=== PATIENT | male | born 1960 | race African-American/Black ===

== ENCOUNTER 2016-09-01 19:41 | Emergency (ER) | payer MEDICAID ==
[~2016-09-01] VITALS: Ht 177.8 cm; Wt 125.0 kg
[~2016-09-01 19:41] MED LIST: DIVA500T52 PO; DOCU-174 PO; HYDR25TA PO; LISI-662 PO; QUET300XR PO; RISP3 PO
[2016-09-01] MEDS ORDERED: TERBINAFINE HCL 1% 30 GM CREAM TP ONE (22:45)
[2016-09-01] MEDS ORDERED: LORazepam 2 MG TABLET PO ONE (22:45)
[2016-09-01 23:00] VITALS: BP 135/80
[2016-09-21] MEDS ORDERED: DIVA500T52 PO (14:11)
[2016-09-21] MEDS ORDERED: QUET300T2 PO (14:12)
[2016-09-21] MEDS ORDERED: ASPI-1093 PO (14:14)
[2016-09-21] MEDS ORDERED: METO50 PO (14:14)
[2016-09-21] MEDS ORDERED: AMLO-511 PO (14:14)
[2016-09-21] MEDS ORDERED: OMEP20 PO (14:15)
[2016-09-29] MEDS ORDERED: PALI234D IM (08:51)
[2016-09-29] MEDS ORDERED: FLUO-191 PO (08:52)
[2016-09-29] MEDS ORDERED: PALI3 PO (08:53)
== END 2016-09-01 23:10 | disposition home or self-care (01) ==
LOC: EMS 19:42
DX: F32.9 Major depressive disorder, single episode, unspecified (principal); Z91.14 Patient's other noncompliance with medication regimen; B35.3 Tinea pedis; B35.1 Tinea unguium; F41.9 Anxiety disorder, unspecified; E78.00 Pure hypercholesterolemia, unspecified; F20.9 Schizophrenia, unspecified; F17.210 Nicotine dependence, cigarettes, uncomplicated; I10 Essential (primary) hypertension; Z88.8 Allergy status to other drugs, medicaments and biological substances
CPT/HCPCS: 99284; 99406

== ENCOUNTER 2016-09-30 09:06 | Emergency (ER) | payer MEDICAID ==
[~2016-09-30] VITALS: Ht 177.8 cm; Wt 122.7 kg
[~2016-09-30 09:06] MED LIST changes: +AMLO-511 PO; +ASPI-1093 PO; -DIVA500T52 PO; -DOCU-174 PO; +FLUO-191 PO; -HYDR25TA PO; +METO50 PO; +OMEP20 PO; +PALI234D IM; +PALI3 PO; -QUET300XR PO; -RISP3 PO
[2016-09-30] MEDS ORDERED: HYDR25TA PO (09:27)
[2016-09-30 10:18] LABS: APPEARANCE,URINE CLOUDY (CLEAR); GLUCOSE, URINE (UA) NEGATIVE (NEGATIVE); KETONES,URINE TRACE mg/dL (NEGATIVE); LEUKOCYTE ESTERASE ,URINE SMALL (NEGATIVE); OCCULT BLOOD,URINE NEGATIVE (NEGATIVE); PROTEIN,URINE SEE CONFIRM (NEGATIVE)
[2016-09-30 10:22] LABS: ADD UA MICROSCOPIC YES
[2016-09-30 10:25] LABS: SULFOSALICYLIC ACID,URINE 2+ (Negative)
[2016-09-30 10:35] LABS: RBC,URINE 0-2 /HPF (0-2)
[2016-09-30 10:36] LABS: COARSE GRANULAR CASTS,URINE 0-2 /LPF (None Seen); FINE GRANULAR CASTS,URINE 0-2 /LPF (None Seen)
[2016-09-30 10:56] LABS: BASOPHILS % (AUTO) 0.5 % (0.0-2.0); EOSINOPHILS % (AUTO) 0.3 % (1.0-6.0); HEMATOCRIT 38.6 % (41-53); HEMOGLOBIN 13.4 g/dL (13.5-17.5); LYMPHOCYTES # (AUTO) 0.9 K/uL (1.0-4.8); LYMPHOCYTES % (AUTO) 26.3 % (22.0-44.0); MEAN CORPUSCULAR HEMOGLOBIN 32.2 pg (26.0-34.0); MEAN CORPUSCULAR HGB CONC 34.8 G/dL (31.0-37.0); MEAN CORPUSCULAR VOLUME 93 fL (80-100); MONOCYTES # (AUTO) 0.4 K/uL (0.1-1.0); MONOCYTES % (AUTO) 11.6 % (2.0-9.0); NEUTROPHILS # (AUTO) 2.1 K/uL (1.8-7.7); NEUTROPHILS % (AUTO) 61.3 % (40.0-70.0); PLATELET COUNT (AUTO) 231 K/uL (150-450); RED BLOOD CELL COUNT(AUTO) 4.17 MIL/uL (4.50-5.90); RED CELL DISTRIBUTION WIDTH 14.3 % (11.5-14.5); WHITE BLOOD COUNT (AUTO) 3.4 K/uL (4.5-11.0)
[2016-09-30 11:07] LABS: ANION GAP 7 mmol/L (8-16); CALCIUM, TOTAL 9.1 mg/dL (8.8-10.5); CARBON DIOXIDE 30 mmol/L (22-29); CHLORIDE 97 mmol/L (98-107); CREATININE 1.14 mg/dL (0.60-1.30); GLOMERULAR FILTR. RATE CALC > 60 mL/min (>60); POTASSIUM 3.5 mmol/L (3.5-5.1); SODIUM SERUM 134 mmol/L (136-145); UREA NITROGEN, BLOOD 11 mg/dL (7-18)
[2016-09-30 11:08] LABS: INR 1.1 (0.9-1.1); PROTHROMBIN TIME 11.5 SEC (9.4-11.6)
[2016-09-30 11:16] LABS: B-TYPE NATRIURETIC PEPTIDE 37 pg/mL (0-100)
[2016-09-30 11:37] LABS: ALANINE AMINOTRANSFERASE 67 U/L (12-78); ALBUMIN 4.2 g/dL (3.4-5.0); ASPARTATE AMINOTRANSFERASE 26 U/L (15-37); BILIRUBIN,TOTAL 0.7 mg/dL (0.1-1.0); CREATINE KINASE MB 4.4 ng/mL (0-5); CREATINE KINASE, TOTAL 288 U/L (39-308); TOTAL PROTEIN, SERUM 7.9 g/dL (6.4-8.2)
[2016-09-30 11:40] VITALS: BP 165/97
[2016-09-30] MEDS ORDERED: SODIUM CHLORIDE 0.9% 1,000 ML IV ONE (12:00)
[2016-09-30] MEDS ORDERED: CefTRIAXone 1 GM/DEXTROSE 50 ML IV ONE (12:00)
== END 2016-09-30 12:08 | disposition home or self-care (01) ==
LOC: EMS 09:08
DX: N39.0 Urinary tract infection, site not specified (principal); I10 Essential (primary) hypertension; E78.00 Pure hypercholesterolemia, unspecified; J40 Bronchitis, not specified as acute or chronic; F17.210 Nicotine dependence, cigarettes, uncomplicated; Z88.8 Allergy status to other drugs, medicaments and biological substances
CPT/HCPCS: 36415; 71010; 80053; 81001; 82550; 82553; 83880; 84484; 85025; 85610; 85730; 87086; 93005; 96374; 99285; G0480; J0696; 96365

== ENCOUNTER 2017-06-06 00:39 | Inpatient (IN) | payer MEDICAID ==
[~2017-06-06] VITALS: Ht 177.8 cm; Wt 102.1 kg
[~2017-06-06 00:39] MED LIST changes: -AMLO-511 PO; -ASPI-1093 PO; +ASPI-1182 PO; +BACI3.5O22 TP; +DIPH25 PO; +DSS100 PO; -PALI3 PO; +PALI6 PO
[2017-06-06 02:35] LABS: BASOPHILS % (AUTO) 0.8 % (0.0-2.0); EOSINOPHILS % (AUTO) 0.1 % (1.0-6.0); HEMATOCRIT 34.5 % (41-53); HEMOGLOBIN 11.7 g/dL (13.5-17.5); LYMPHOCYTES # (AUTO) 1.2 K/uL (1.0-4.8); LYMPHOCYTES % (AUTO) 26.8 % (22.0-44.0); MEAN CORPUSCULAR HEMOGLOBIN 31.3 pg (26.0-34.0); MEAN CORPUSCULAR HGB CONC 33.8 G/dL (31.0-37.0); MEAN CORPUSCULAR VOLUME 93 fL (80-100); MONOCYTES # (AUTO) 0.3 K/uL (0.1-1.0); MONOCYTES % (AUTO) 6.8 % (2.0-9.0); NEUTROPHILS # (AUTO) 2.9 K/uL (1.8-7.7); NEUTROPHILS % (AUTO) 65.5 % (40.0-70.0); PLATELET COUNT (AUTO) 354 K/uL (150-450); RED BLOOD CELL COUNT(AUTO) 3.72 MIL/uL (4.50-5.90); RED CELL DISTRIBUTION WIDTH 14.3 % (11.5-14.5)
[2017-06-06 02:39] LABS: APPEARANCE,URINE CLEAR (CLEAR); BILIRUBIN,URINE NEGATIVE (NEGATIVE); GLUCOSE, URINE (UA) NEGATIVE (NEGATIVE); KETONES,URINE NEGATIVE (NEGATIVE); LEUKOCYTE ESTERASE ,URINE NEGATIVE (NEGATIVE); NITRATE,URINE NEGATIVE (NEGATIVE); OCCULT BLOOD,URINE NEGATIVE (NEGATIVE); PROTEIN,URINE NEGATIVE (NEGATIVE); UROBILINOGEN,URINE 0.2 mg/dL (<=1.0)
[2017-06-06 02:43] LABS: AMPHET/METH SCREEN,URINE NEGATIVE (NEGATIVE); BARBITURATE SCREEN, URINE NEGATIVE (NEGATIVE); BENZODIAZEPINES SCREEN,URINE NEGATIVE (NEGATIVE); CANNABINOID SCREEN,URINE NEGATIVE (NEGATIVE); COCAINE SCREEN,URINE NEGATIVE (NEGATIVE); METHADONE SCREEN, URINE NEGATIVE (NEGATIVE); OPIATE SCREEN,URINE NEGATIVE (NEGATIVE)
[2017-06-06 03:05] LABS: PHENCYCLIDINE SCREEN,URINE NEGATIVE (NEGATIVE)
[2017-06-06 03:11] LABS: ANION GAP 5 mmol/L (8-16); CALCIUM, TOTAL 9.3 mg/dL (8.8-10.5); CARBON DIOXIDE 31 mmol/L (22-29); CHLORIDE 100 mmol/L (98-107); CREATININE 0.81 mg/dL (0.60-1.30); GLOMERULAR FILTR. RATE CALC > 60 mL/min (>60); GLUCOSE,RANDOM 86 mg/dL (70-110); POTASSIUM 3.9 mmol/L (3.5-5.1); SODIUM SERUM 136 mmol/L (136-145); UREA NITROGEN, BLOOD 10 mg/dL (7-18)
[2017-06-06] MEDS ORDERED: LORazepam 2 MG TABLET PO ONE (03:15)
[2017-06-06] MEDS ORDERED: OLANZapine 5 MG TABLET PO ONE (03:15)
[2017-06-06] MEDS ORDERED: DiphenhydrAMINE HCL 25 MG CAPSULE PO ONE (03:15)
[2017-06-06 03:16] LABS: ALANINE AMINOTRANSFERASE 41 U/L (12-78); ALBUMIN 3.4 g/dL (3.4-5.0); ALKALINE PHOSPHATASE 77 U/L (46-116); ASPARTATE AMINOTRANSFERASE 31 U/L (15-37); BILIRUBIN,TOTAL 0.4 mg/dL (0.1-1.0); TOTAL PROTEIN, SERUM 7.4 g/dL (6.4-8.2)
[2017-06-06 08:40] VITALS: BP 154/119
[2017-06-06 08:45] VITALS: BP 156/119
[2017-06-06] MEDS ORDERED: BACITRACIN 28.4 GM OINTMENT TP PRN (09:45)
[2017-06-06] MEDS ORDERED: PETROLATUM,WHITE 71 GM JELLY TP PRN (09:45)
[2017-06-06] MEDS ORDERED: LOPERAMIDE HCL 2 MG CAPSULE PO PRN (09:45)
[2017-06-06] MEDS ORDERED: MAGNESIUM HYDROXIDE SUSPENSION 30 ML UDCUP PO PRN (09:45)
[2017-06-06] MEDS ORDERED: DiphenhydrAMINE HCL 25 MG CAPSULE PO PRN (09:45)
[2017-06-06] MEDS ORDERED: ALBUTEROL SULFATE HFA 90 MCG/PUFF 8 GM INHALER IH PRN (09:45)
[2017-06-06] MEDS ORDERED: IBUPROFEN 600 MG TABLET PO PRN (09:45)
[2017-06-06] MEDS ORDERED: ACETAMINOPHEN 325 MG TABLET PO PRN (09:45)
[2017-06-06] MEDS ORDERED: MAG HYDROX/AL HYDROX/SIMETH ES 30 ML SUSPENSION UDCUP PO PRN (09:45)
[2017-06-06] MEDS ORDERED: ONDANSETRON HCL 4 MG TABLET PO PRN (09:45)
[2017-06-06] MEDS ORDERED: BENZOCAINE/MENTHOL LOZENGE MM PRN (09:45)
[2017-06-06] MEDS: LISINOPRIL 20 MG TABLET PO SCH (09:58)
[2017-06-06] MEDS: BACITRACIN 28.4 GM OINTMENT TP SCH ×2 (09:59→16:42)
[2017-06-06] MEDS: LORazepam 2 MG TABLET PO PRN ×2 (09:59→16:42)
[2017-06-06 16:00] VITALS: BP 132/77
[2017-06-06] MEDS: METOPROLOL TARTRATE 50 MG TABLET PO SCH (16:42)
[2017-06-06] MEDS: PALIPERIDONE 6 MG ER TABLET PO SCH (21:20)
[2017-06-07 04:56] VITALS: BP 140/92
[2017-06-07 08:00] VITALS: BP 127/68
[2017-06-07] MEDS: DiphenhydrAMINE HCL 25 MG CAPSULE PO SCH ×2 (08:04→16:12)
[2017-06-07] MEDS: LORazepam 2 MG TABLET PO PRN ×3 (08:04→20:39)
[2017-06-07] MEDS: LISINOPRIL 20 MG TABLET PO SCH (08:04)
[2017-06-07] MEDS: ASPIRIN 81 MG EC TABLET PO SCH (08:04)
[2017-06-07] MEDS: FLUoxetine HCL 20 MG CAPSULE PO SCH (08:04)
[2017-06-07] MEDS: METOPROLOL TARTRATE 50 MG TABLET PO SCH ×2 (08:40→16:12)
[2017-06-07] MEDS: BACITRACIN 28.4 GM OINTMENT TP SCH ×2 (08:40→16:13)
[2017-06-07] MEDS: PALIPERIDONE 6 MG ER TABLET PO SCH ×2 (08:49→20:39)
[2017-06-07] MEDS ORDERED: LISINOPRIL 20 MG TABLET PO SCH (09:00)
[2017-06-07 16:00] VITALS: BP 145/89
[2017-06-07] MEDS: ZOLPIDEM TARTRATE 10 MG TABLET PO PRN (20:39)
[2017-06-08] MEDS: CloNIDine HCL 0.1 MG TABLET PO PRN (00:50)
[2017-06-08 00:53] VITALS: BP 187/97
[2017-06-08] MEDS: LORazepam 2 MG TABLET PO PRN ×2 (00:53→08:51)
[2017-06-08 02:02] VITALS: BP 143/87
[2017-06-08 08:08] VITALS: BP 145/83
[2017-06-08] MEDS: FLUoxetine HCL 20 MG CAPSULE PO SCH (08:49)
[2017-06-08] MEDS: LISINOPRIL 20 MG TABLET PO SCH (08:50)
[2017-06-08] MEDS: DiphenhydrAMINE HCL 25 MG CAPSULE PO SCH ×2 (08:50→16:25)
[2017-06-08] MEDS: ASPIRIN 81 MG EC TABLET PO SCH (08:50)
[2017-06-08] MEDS: PALIPERIDONE 6 MG ER TABLET PO SCH ×2 (08:51→20:06)
[2017-06-08] MEDS: METOPROLOL TARTRATE 50 MG TABLET PO SCH ×2 (08:51→16:25)
[2017-06-08] MEDS: BACITRACIN 28.4 GM OINTMENT TP SCH ×2 (09:50→16:26)
[2017-06-08 16:37] VITALS: BP 153/87
[2017-06-08 20:00] VITALS: BP 146/84
[2017-06-08 21:22] VITALS: BP 140/66
[2017-06-08] MEDS: ZOLPIDEM TARTRATE 10 MG TABLET PO PRN (22:09)
[2017-06-09 05:05] VITALS: BP 144/91
[2017-06-09 08:08] VITALS: BP 139/80
[2017-06-09] MEDS: ASPIRIN 81 MG EC TABLET PO SCH (08:40)
[2017-06-09] MEDS: PALIPERIDONE 6 MG ER TABLET PO SCH ×2 (08:40→20:42)
[2017-06-09] MEDS: LORazepam 2 MG TABLET PO PRN ×2 (08:40→16:30)
[2017-06-09] MEDS: METOPROLOL TARTRATE 50 MG TABLET PO SCH ×2 (08:40→16:29)
[2017-06-09] MEDS: DiphenhydrAMINE HCL 25 MG CAPSULE PO SCH ×2 (08:40→16:29)
[2017-06-09] MEDS: LISINOPRIL 20 MG TABLET PO SCH (08:40)
[2017-06-09] MEDS: FLUoxetine HCL 20 MG CAPSULE PO SCH (08:41)
[2017-06-09] MEDS: BACITRACIN 28.4 GM OINTMENT TP SCH ×2 (10:13→16:30)
[2017-06-09 17:03] VITALS: BP 138/61
[2017-06-09] MEDS: ZOLPIDEM TARTRATE 10 MG TABLET PO PRN (20:42)
[2017-06-10] MEDS: LORazepam 2 MG TABLET PO PRN ×2 (03:50→16:42)
[2017-06-10] MEDS: CloNIDine HCL 0.1 MG TABLET PO PRN (03:51)
[2017-06-10 03:52] VITALS: BP 150/112
[2017-06-10 05:00] VITALS: BP 140/92
[2017-06-10] MEDS: PALIPERIDONE 6 MG ER TABLET PO SCH ×2 (08:30→20:32)
[2017-06-10] MEDS: FLUoxetine HCL 20 MG CAPSULE PO SCH (08:30)
[2017-06-10 08:31] VITALS: BP 163/85
[2017-06-10] MEDS: BACITRACIN 28.4 GM OINTMENT TP SCH ×2 (08:31→16:42)
[2017-06-10] MEDS: METOPROLOL TARTRATE 50 MG TABLET PO SCH ×2 (08:31→16:42)
[2017-06-10] MEDS: ASPIRIN 81 MG EC TABLET PO SCH (08:31)
[2017-06-10] MEDS: DiphenhydrAMINE HCL 25 MG CAPSULE PO SCH ×2 (08:31→16:42)
[2017-06-10] MEDS: LISINOPRIL 20 MG TABLET PO SCH ×2 (08:31→09:40)
[2017-06-10 16:00] VITALS: BP 130/72
[2017-06-11 03:56] VITALS: BP 161/111
[2017-06-11] MEDS: CloNIDine HCL 0.1 MG TABLET PO PRN (04:01)
[2017-06-11] MEDS: LORazepam 2 MG TABLET PO PRN ×2 (04:01→16:06)
[2017-06-11 05:00] VITALS: BP 153/98
[2017-06-11] MEDS: METOPROLOL TARTRATE 50 MG TABLET PO SCH ×2 (08:10→16:06)
[2017-06-11] MEDS: ASPIRIN 81 MG EC TABLET PO SCH (08:10)
[2017-06-11] MEDS: DiphenhydrAMINE HCL 25 MG CAPSULE PO SCH ×2 (08:10→16:06)
[2017-06-11] MEDS: LISINOPRIL 20 MG TABLET PO SCH (08:10)
[2017-06-11] MEDS: BACITRACIN 28.4 GM OINTMENT TP SCH ×2 (08:10→16:06)
[2017-06-11] MEDS: PALIPERIDONE 6 MG ER TABLET PO SCH ×2 (08:10→20:42)
[2017-06-11] MEDS: FLUoxetine HCL 20 MG CAPSULE PO SCH (08:10)
[2017-06-11 08:59] VITALS: BP 133/80
[2017-06-11 16:00] VITALS: BP 138/66
[2017-06-11] MEDS: ZOLPIDEM TARTRATE 10 MG TABLET PO PRN (20:42)
[2017-06-12 03:00] VITALS: BP 155/93
[2017-06-12] MEDS: LORazepam 2 MG TABLET PO PRN ×2 (03:02→08:16)
[2017-06-12 08:09] VITALS: BP 138/81
[2017-06-12] MEDS: PALIPERIDONE 6 MG ER TABLET PO SCH (08:15)
[2017-06-12] MEDS: FLUoxetine HCL 20 MG CAPSULE PO SCH (08:15)
[2017-06-12] MEDS: DiphenhydrAMINE HCL 25 MG CAPSULE PO SCH ×2 (08:16→16:49)
[2017-06-12] MEDS: LISINOPRIL 20 MG TABLET PO SCH (08:16)
[2017-06-12] MEDS: ASPIRIN 81 MG EC TABLET PO SCH (08:16)
[2017-06-12] MEDS: METOPROLOL TARTRATE 50 MG TABLET PO SCH ×2 (08:17→16:49)
[2017-06-12] MEDS: BACITRACIN 28.4 GM OINTMENT TP SCH ×2 (08:17→17:10)
[2017-06-12 16:00] VITALS: BP 151/76
[2017-06-12] MEDS ORDERED: FLUO-191 PO (16:29)
[2017-06-12] MEDS ORDERED: PALI6 PO (16:30)
[2017-06-12] MEDS ORDERED: LISI-662 PO (16:33)
[2017-06-28] MEDS ORDERED: PALIPERIDONE PALMITATE 234 MG/1.5 ML SYRINGE IM SCH (09:00)
== END 2017-06-12 18:35 | disposition home or self-care (01) | DRG 750 ==
LOC: EMS 00:40 → B3A 02:52
PROVIDERS: ADMIT Psychiatry & Neurology Psychiatry; ATTEND Psychiatry & Neurology Psychiatry
PROC: GZHZZZZ Group Psychotherapy (ICD-10-PCS; principal; 2017-06-06)
DX: F25.0 Schizoaffective disorder, bipolar type (principal); R45.851 Suicidal ideations; Z59.0 Homelessness; E66.9 Obesity, unspecified; I10 Essential (primary) hypertension; F17.200 Nicotine dependence, unspecified, uncomplicated; F12.90 Cannabis use, unspecified, uncomplicated; Z88.8 Allergy status to other drugs, medicaments and biological substances; Z68.32 Body mass index [BMI] 32.0-32.9, adult; E78.00 Pure hypercholesterolemia, unspecified; G47.00 Insomnia, unspecified; I25.10 Atherosclerotic heart disease of native coronary artery without angina pectoris; J44.9 Chronic obstructive pulmonary disease, unspecified; S00.01XA Abrasion of scalp, initial encounter; X58.XXXA Exposure to other specified factors, initial encounter; Y93.89 Activity, other specified; Y92.89 Other specified places as the place of occurrence of the external cause; Y99.8 Other external cause status; Z79.82 Long term (current) use of aspirin; Z82.49 Family history of ischemic heart disease and other diseases of the circulatory system
CPT/HCPCS: 93970; 99285; G0480

== ENCOUNTER 2017-07-02 13:19 | Emergency (ER) | payer OTHER ==
[~2017-07-02] VITALS: Ht 177.8 cm; Wt 102.0 kg
[~2017-07-02 13:19] MED LIST changes: -BACI3.5O22 TP; -DSS100 PO; -OMEP20 PO
[2017-07-02 14:35] LABS: ANION GAP 7 mmol/L (8-16); CARBON DIOXIDE 27 mmol/L (22-29); CHLORIDE 102 mmol/L (98-107); CREATININE 0.81 mg/dL (0.60-1.30); GLOMERULAR FILTR. RATE CALC > 60 mL/min (>60); GLUCOSE,RANDOM 81 mg/dL (70-110); POTASSIUM 4.4 mmol/L (3.5-5.1); SODIUM SERUM 136 mmol/L (136-145); UREA NITROGEN, BLOOD 12 mg/dL (7-18)
[2017-07-02 14:41] LABS: ALANINE AMINOTRANSFERASE 42 U/L (12-78); ALBUMIN 3.6 g/dL (3.4-5.0); ALKALINE PHOSPHATASE 65 U/L (46-116); ASPARTATE AMINOTRANSFERASE 24 U/L (15-37); BILIRUBIN,TOTAL 0.4 mg/dL (0.1-1.0); TOTAL PROTEIN, SERUM 6.8 g/dL (6.4-8.2)
[2017-07-02 15:05] LABS: EOSINOPHILS % (AUTO) 0.1 % (1.0-6.0); HEMOGLOBIN 12.1 g/dL (13.5-17.5); LYMPHOCYTES # (AUTO) 0.9 K/uL (1.0-4.8); LYMPHOCYTES % (AUTO) 25.8 % (22.0-44.0); MEAN CORPUSCULAR HEMOGLOBIN 32.1 pg (26.0-34.0); MEAN CORPUSCULAR HGB CONC 34.6 G/dL (31.0-37.0); MEAN CORPUSCULAR VOLUME 93 fL (80-100); MONOCYTES # (AUTO) 0.3 K/uL (0.1-1.0); MONOCYTES % (AUTO) 9.9 % (2.0-9.0); NEUTROPHILS # (AUTO) 2.2 K/uL (1.8-7.7); NEUTROPHILS % (AUTO) 63.2 % (40.0-70.0); PLATELET COUNT (AUTO) 212 K/uL (150-450); RED BLOOD CELL COUNT(AUTO) 3.78 MIL/uL (4.50-5.90); RED CELL DISTRIBUTION WIDTH 15.1 % (11.5-14.5)
[2017-07-02 15:12] LABS: AMPHET/METH SCREEN,URINE NEGATIVE (NEGATIVE); BARBITURATE SCREEN, URINE NEGATIVE (NEGATIVE); BENZODIAZEPINES SCREEN,URINE NEGATIVE (NEGATIVE); CANNABINOID SCREEN,URINE NEGATIVE (NEGATIVE); COCAINE SCREEN,URINE NEGATIVE (NEGATIVE); METHADONE SCREEN, URINE NEGATIVE (NEGATIVE); OPIATE SCREEN,URINE NEGATIVE (NEGATIVE)
[2017-07-02 15:13] LABS: PHENCYCLIDINE SCREEN,URINE NEGATIVE (NEGATIVE)
[2017-07-02 17:15] VITALS: BP 142/80
== END 2017-07-02 17:24 | disposition home or self-care (01) ==
LOC: EMS 13:20
DX: S01.00XD Unspecified open wound of scalp, subsequent encounter (principal); F20.9 Schizophrenia, unspecified; R42 Dizziness and giddiness; E78.00 Pure hypercholesterolemia, unspecified; I10 Essential (primary) hypertension; F12.90 Cannabis use, unspecified, uncomplicated; Z59.0 Homelessness; Z88.8 Allergy status to other drugs, medicaments and biological substances; X58.XXXD Exposure to other specified factors, subsequent encounter
CPT/HCPCS: 36415; 80053; 80307; 85025; 99284; G0480

== ENCOUNTER 2017-07-18 19:46 | Inpatient (IN) | payer MEDICAID, OTHER ==
[~2017-07-18] VITALS: Ht 177.8 cm; Wt 103.6 kg
[~2017-07-18 19:46] MED LIST changes: -ASPI-1182 PO; -DIPH25 PO; -LISI-662 PO; -PALI234D IM
[2017-07-18 23:37] LABS: AMPHET/METH SCREEN,URINE NEGATIVE (NEGATIVE); BARBITURATE SCREEN, URINE NEGATIVE (NEGATIVE); BENZODIAZEPINES SCREEN,URINE NEGATIVE (NEGATIVE); CANNABINOID SCREEN,URINE NEGATIVE (NEGATIVE); COCAINE SCREEN,URINE NEGATIVE (NEGATIVE); METHADONE SCREEN, URINE NEGATIVE (NEGATIVE); OPIATE SCREEN,URINE NEGATIVE (NEGATIVE)
[2017-07-18 23:38] LABS: PHENCYCLIDINE SCREEN,URINE NEGATIVE (NEGATIVE)
[2017-07-18 23:40] LABS: BASOPHILS % (AUTO) 0.6 % (0.0-2.0); EOSINOPHILS % (AUTO) 0.6 % (1.0-6.0); HEMATOCRIT 35.1 % (41-53); HEMOGLOBIN 12.1 g/dL (13.5-17.5); LYMPHOCYTES # (AUTO) 0.8 K/uL (1.0-4.8); LYMPHOCYTES % (AUTO) 23.8 % (22.0-44.0); MEAN CORPUSCULAR HEMOGLOBIN 32.3 pg (26.0-34.0); MEAN CORPUSCULAR HGB CONC 34.5 G/dL (31.0-37.0); MEAN CORPUSCULAR VOLUME 94 fL (80-100); MONOCYTES # (AUTO) 0.3 K/uL (0.1-1.0); MONOCYTES % (AUTO) 9.4 % (2.0-9.0); NEUTROPHILS # (AUTO) 2.3 K/uL (1.8-7.7); NEUTROPHILS % (AUTO) 65.6 % (40.0-70.0); PLATELET COUNT (AUTO) 186 K/uL (150-450); RED BLOOD CELL COUNT(AUTO) 3.75 MIL/uL (4.50-5.90); RED CELL DISTRIBUTION WIDTH 14.7 % (11.5-14.5)
[2017-07-18 23:53] LABS: ANION GAP 7 mmol/L (8-16); CALCIUM, TOTAL 8.5 mg/dL (8.8-10.5); CARBON DIOXIDE 29 mmol/L (22-29); CHLORIDE 103 mmol/L (98-107); GLOMERULAR FILTR. RATE CALC > 60 mL/min (>60); GLUCOSE,RANDOM 121 mg/dL (70-110); SODIUM SERUM 139 mmol/L (136-145); UREA NITROGEN, BLOOD 22 mg/dL (7-18)
[2017-07-18 23:59] LABS: ALANINE AMINOTRANSFERASE 37 U/L (12-78); ALBUMIN 3.1 g/dL (3.4-5.0); ALKALINE PHOSPHATASE 75 U/L (46-116); ASPARTATE AMINOTRANSFERASE 28 U/L (15-37); BILIRUBIN,TOTAL 0.2 mg/dL (0.1-1.0); TOTAL PROTEIN, SERUM 6.5 g/dL (6.4-8.2)
[2017-07-19] MEDS ORDERED: OLANZapine 5 MG RAPDIS TABLET PO PRN (00:30)
[2017-07-19 04:20] LABS: APPEARANCE,URINE CLEAR (CLEAR); BILIRUBIN,URINE PRELIM. POSITIVE (NEGATIVE); GLUCOSE, URINE (UA) NEGATIVE (NEGATIVE); KETONES,URINE NEGATIVE (NEGATIVE); LEUKOCYTE ESTERASE ,URINE NEGATIVE (NEGATIVE); NITRATE,URINE NEGATIVE (NEGATIVE); OCCULT BLOOD,URINE NEGATIVE (NEGATIVE); PH,URINE 5.5 (5.0-8.0); PROTEIN,URINE NEGATIVE (NEGATIVE)
[2017-07-19] MEDS ORDERED: CloNIDine HCL 0.1 MG TABLET PO ONE (14:45)
[2017-07-19] MEDS: LORazepam 2 MG TABLET PO PRN (19:51)
[2017-07-19 20:35] VITALS: BP 138/86
[2017-07-19] MEDS: PALIPERIDONE 6 MG ER TABLET PO SCH (21:24)
[2017-07-19] MEDS: DiphenhydrAMINE HCL 25 MG CAPSULE PO SCH (21:24)
[2017-07-19] MEDS: ZOLPIDEM TARTRATE 10 MG TABLET PO PRN (21:25)
[2017-07-20] MEDS ORDERED: PNEUMOCOCCAL VACCINE POLYVALENT 0.5 ML VIAL [PPSV23] IM ONE (03:30)
[2017-07-20] MEDS ORDERED: BENZOCAINE/MENTHOL LOZENGE [8 LOZENGES/PACKET] MM PRN (08:30)
[2017-07-20] MEDS ORDERED: MAGNESIUM HYDROXIDE SUSPENSION 30 ML UDCUP PO PRN (08:30)
[2017-07-20] MEDS ORDERED: BACITRACIN 28.4 GM OINTMENT TP PRN (08:30)
[2017-07-20] MEDS ORDERED: ACETAMINOPHEN 325 MG TABLET PO PRN (08:30)
[2017-07-20] MEDS ORDERED: ONDANSETRON HCL 4 MG TABLET PO PRN (08:30)
[2017-07-20] MEDS ORDERED: IBUPROFEN 600 MG TABLET PO PRN (08:30)
[2017-07-20] MEDS ORDERED: ALBUTEROL SULFATE HFA 90 MCG/PUFF 8 GM INHALER IH PRN (08:30)
[2017-07-20] MEDS ORDERED: PETROLATUM,WHITE 71 GM JELLY TP PRN (08:30)
[2017-07-20] MEDS: DOCUSATE SODIUM 100 MG CAPSULE PO SCH (08:52)
[2017-07-20] MEDS: DiphenhydrAMINE HCL 25 MG CAPSULE PO SCH ×2 (08:53→20:17)
[2017-07-20] MEDS: LORazepam 2 MG TABLET PO PRN (08:53)
[2017-07-20] MEDS: PALIPERIDONE 6 MG ER TABLET PO SCH ×2 (08:53→20:17)
[2017-07-20] MEDS: FLUoxetine HCL 20 MG CAPSULE PO SCH (08:53)
[2017-07-20] MEDS: OMEPRAZOLE 20 MG CAPSULE PO SCH (08:55)
[2017-07-20] MEDS: METOPROLOL TARTRATE 25 MG TABLET PO SCH ×2 (08:55→16:22)
[2017-07-20 09:00] VITALS: BP 167/96
[2017-07-20 16:19] VITALS: BP 155/93
[2017-07-21] MEDS: LORazepam 2 MG TABLET PO PRN ×2 (00:09→18:50)
[2017-07-21] MEDS: ZOLPIDEM TARTRATE 10 MG TABLET PO PRN (00:09)
[2017-07-21 08:30] VITALS: BP 156/101
[2017-07-21] MEDS: METOPROLOL TARTRATE 25 MG TABLET PO SCH ×2 (09:00→17:47)
[2017-07-21] MEDS: PALIPERIDONE 6 MG ER TABLET PO SCH ×2 (09:00→20:08)
[2017-07-21] MEDS: OMEPRAZOLE 20 MG CAPSULE PO SCH (09:00)
[2017-07-21] MEDS ORDERED: MULTIVITAMINS WITH MINERALS, THERAPEUTIC TABLET PO SCH (09:00)
[2017-07-21] MEDS: DOCUSATE SODIUM 100 MG CAPSULE PO SCH (09:00)
[2017-07-21] MEDS: DiphenhydrAMINE HCL 25 MG CAPSULE PO SCH ×2 (09:00→20:08)
[2017-07-21] MEDS: FLUoxetine HCL 20 MG CAPSULE PO SCH (09:00)
[2017-07-21 17:50] VITALS: BP 190/110
[2017-07-21] MEDS: CloNIDine HCL 0.1 MG TABLET PO PRN (18:00)
[2017-07-21 18:50] VITALS: BP 178/95
[2017-07-21 19:50] VITALS: BP 148/96
[2017-07-22 05:00] VITALS: BP 160/109
[2017-07-22] MEDS: LORazepam 2 MG TABLET PO PRN ×2 (05:07→14:56)
[2017-07-22] MEDS: CloNIDine HCL 0.1 MG TABLET PO PRN (05:07)
[2017-07-22 06:40] VITALS: BP 144/77
[2017-07-22] MEDS: DOCUSATE SODIUM 100 MG CAPSULE PO SCH (08:04)
[2017-07-22] MEDS: DiphenhydrAMINE HCL 25 MG CAPSULE PO SCH ×2 (08:04→20:03)
[2017-07-22] MEDS: MULTIVITAMINS WITH IRON TABLET PO SCH (08:04)
[2017-07-22] MEDS: OMEPRAZOLE 20 MG CAPSULE PO SCH (08:04)
[2017-07-22] MEDS: METOPROLOL TARTRATE 25 MG TABLET PO SCH ×2 (08:04→16:33)
[2017-07-22] MEDS: FLUoxetine HCL 20 MG CAPSULE PO SCH (08:04)
[2017-07-22] MEDS: PALIPERIDONE 6 MG ER TABLET PO SCH ×2 (08:05→20:03)
[2017-07-22 08:38] VITALS: BP 130/87
[2017-07-22] MEDS: LISINOPRIL 20 MG TABLET PO SCH (09:26)
[2017-07-22 16:30] VITALS: BP 140/98
[2017-07-23 04:02] VITALS: BP 120/83
[2017-07-23 08:00] VITALS: BP 148/91
[2017-07-23] MEDS: DOCUSATE SODIUM 100 MG CAPSULE PO SCH (08:11)
[2017-07-23] MEDS: MULTIVITAMINS WITH IRON TABLET PO SCH (08:11)
[2017-07-23] MEDS: PALIPERIDONE 6 MG ER TABLET PO SCH ×2 (08:11→20:57)
[2017-07-23] MEDS: METOPROLOL TARTRATE 25 MG TABLET PO SCH ×2 (08:12→18:27)
[2017-07-23] MEDS: OMEPRAZOLE 20 MG CAPSULE PO SCH (08:12)
[2017-07-23] MEDS: LISINOPRIL 20 MG TABLET PO SCH (08:12)
[2017-07-23] MEDS: DiphenhydrAMINE HCL 25 MG CAPSULE PO SCH ×2 (08:12→20:57)
[2017-07-23] MEDS: FLUoxetine HCL 20 MG CAPSULE PO SCH (08:13)
[2017-07-23] MEDS: LORazepam 2 MG TABLET PO PRN (12:48)
[2017-07-23 20:00] VITALS: BP 145/89
[2017-07-24] MEDS: ZOLPIDEM TARTRATE 10 MG TABLET PO PRN (00:18)
[2017-07-24 08:00] VITALS: BP 144/89
[2017-07-24] MEDS: DOCUSATE SODIUM 100 MG CAPSULE PO SCH (08:30)
[2017-07-24] MEDS: LORazepam 2 MG TABLET PO PRN (08:30)
[2017-07-24] MEDS: PALIPERIDONE 6 MG ER TABLET PO SCH ×2 (08:30→21:01)
[2017-07-24] MEDS: DiphenhydrAMINE HCL 25 MG CAPSULE PO SCH ×2 (08:30→21:02)
[2017-07-24] MEDS: METOPROLOL TARTRATE 25 MG TABLET PO SCH ×2 (08:31→16:11)
[2017-07-24] MEDS: OMEPRAZOLE 20 MG CAPSULE PO SCH (08:31)
[2017-07-24] MEDS: MULTIVITAMINS WITH IRON TABLET PO SCH (08:31)
[2017-07-24] MEDS: LISINOPRIL 20 MG TABLET PO SCH (08:32)
[2017-07-24] MEDS: FLUoxetine HCL 20 MG CAPSULE PO SCH (08:32)
[2017-07-24] MEDS ORDERED: PALI234D IM (15:06)
[2017-07-24 16:33] VITALS: BP 134/55
[2017-07-24] MEDS: MAG HYDROX/AL HYDROX/SIMETH ES 30 ML SUSPENSION UDCUP PO PRN (22:00)
[2017-07-25] MEDS: FLUoxetine HCL 20 MG CAPSULE PO SCH (07:55)
[2017-07-25] MEDS: METOPROLOL TARTRATE 25 MG TABLET PO SCH ×2 (07:55→16:58)
[2017-07-25] MEDS: MULTIVITAMINS WITH IRON TABLET PO SCH (07:55)
[2017-07-25] MEDS: DiphenhydrAMINE HCL 25 MG CAPSULE PO SCH ×2 (07:55→21:05)
[2017-07-25] MEDS: PALIPERIDONE 6 MG ER TABLET PO SCH ×2 (07:55→21:05)
[2017-07-25] MEDS: LISINOPRIL 20 MG TABLET PO SCH (07:56)
[2017-07-25] MEDS: DOCUSATE SODIUM 100 MG CAPSULE PO SCH (07:56)
[2017-07-25] MEDS: OMEPRAZOLE 20 MG CAPSULE PO SCH (07:56)
[2017-07-25 08:30] VITALS: BP 162/93
[2017-07-25] MEDS ORDERED: PALIPERIDONE PALMITATE 234 MG/1.5 ML SYRINGE IM SCH (09:00)
[2017-07-25] MEDS: LOPERAMIDE HCL 2 MG CAPSULE PO PRN (14:37)
[2017-07-25 16:59] VITALS: BP 149/85
[2017-07-26 06:15] VITALS: BP 139/84
[2017-07-26] MEDS: PALIPERIDONE 6 MG ER TABLET PO SCH (07:58)
[2017-07-26] MEDS: DOCUSATE SODIUM 100 MG CAPSULE PO SCH (07:58)
[2017-07-26] MEDS: METOPROLOL TARTRATE 25 MG TABLET PO SCH ×2 (07:58→16:18)
[2017-07-26] MEDS: LISINOPRIL 20 MG TABLET PO SCH (07:58)
[2017-07-26] MEDS: DiphenhydrAMINE HCL 25 MG CAPSULE PO SCH (07:58)
[2017-07-26] MEDS: MULTIVITAMINS WITH IRON TABLET PO SCH (07:59)
[2017-07-26] MEDS: OMEPRAZOLE 20 MG CAPSULE PO SCH (07:59)
[2017-07-26] MEDS: FLUoxetine HCL 20 MG CAPSULE PO SCH (07:59)
[2017-07-26] MEDS: MAG HYDROX/AL HYDROX/SIMETH ES 30 ML SUSPENSION UDCUP PO PRN (09:07)
[2017-07-26 11:53] VITALS: BP 183/95
[2017-07-26] MEDS: CloNIDine HCL 0.1 MG TABLET PO PRN (11:55)
[2017-07-26] MEDS: LOPERAMIDE HCL 2 MG CAPSULE PO PRN (11:55)
[2017-07-26] MEDS ORDERED: MVITFE PO (14:00)
[2017-07-26] MEDS ORDERED: DSS100 PO (14:00)
[2017-07-26] MEDS ORDERED: LISI-662 PO (14:00)
[2017-07-26] MEDS ORDERED: OMEP20 PO (14:00)
[2017-07-26] MEDS ORDERED: METO25 PO (14:00)
[2017-07-26] MEDS ORDERED: PALI6 PO (14:25)
[2017-07-26] MEDS ORDERED: DIPH25 PO (14:26)
[2017-07-26] MEDS ORDERED: FLUO-191 PO (14:26)
[2017-07-26 18:59] VITALS: BP 160/78
== END 2017-07-26 19:30 | disposition home or self-care (01) | DRG 750 ==
LOC: EMS 19:49 → 3EC 07-19 14:44
PROVIDERS: ADMIT Psychiatry & Neurology Psychiatry; ATTEND Psychiatry & Neurology Psychiatry
DX: F25.0 Schizoaffective disorder, bipolar type (principal); R45.851 Suicidal ideations; Z59.0 Homelessness; I10 Essential (primary) hypertension; E66.9 Obesity, unspecified; E78.00 Pure hypercholesterolemia, unspecified; F12.90 Cannabis use, unspecified, uncomplicated; F17.200 Nicotine dependence, unspecified, uncomplicated; F41.9 Anxiety disorder, unspecified; G47.00 Insomnia, unspecified; I25.10 Atherosclerotic heart disease of native coronary artery without angina pectoris; J44.9 Chronic obstructive pulmonary disease, unspecified; M54.9 Dorsalgia, unspecified; Z88.8 Allergy status to other drugs, medicaments and biological substances; Z68.32 Body mass index [BMI] 32.0-32.9, adult; Z71.6 Tobacco abuse counseling; Z82.49 Family history of ischemic heart disease and other diseases of the circulatory system; Z81.1 Family history of alcohol abuse and dependence
CPT/HCPCS: 87081; 99285; G0480

== ENCOUNTER 2017-07-27 08:23 | Emergency (ER) | payer MEDICAID, OTHER ==
[~2017-07-27] VITALS: Ht 182.9 cm; Wt 100.0 kg
[~2017-07-27 08:23] MED LIST changes: +DIPH25 PO; +DSS100 PO; +LISI-662 PO; +METO25 PO; -METO50 PO; +MVITFE PO; +OMEP20 PO; +PALI234D IM
[2017-07-27 09:00] VITALS: BP 151/74
[2017-07-27] MEDS ORDERED: CEFTAROLINE 600 MG/D5W 250 ML IV ONE (09:15)
[2017-07-27 09:50] LABS: BASOPHILS % (AUTO) 0.6 % (0.0-2.0); EOSINOPHILS % (AUTO) 0.4 % (1.0-6.0); HEMATOCRIT 36.2 % (41-53); HEMOGLOBIN 12.2 g/dL (13.5-17.5); LYMPHOCYTES # (AUTO) 0.8 K/uL (1.0-4.8); MEAN CORPUSCULAR HEMOGLOBIN 31.5 pg (26.0-34.0); MEAN CORPUSCULAR HGB CONC 33.6 G/dL (31.0-37.0); MEAN CORPUSCULAR VOLUME 94 fL (80-100); MONOCYTES # (AUTO) 0.5 K/uL (0.1-1.0); MONOCYTES % (AUTO) 13.9 % (2.0-9.0); NEUTROPHILS # (AUTO) 2.3 K/uL (1.8-7.7); NEUTROPHILS % (AUTO) 62.1 % (40.0-70.0); PLATELET COUNT (AUTO) 191 K/uL (150-450); RED BLOOD CELL COUNT(AUTO) 3.86 MIL/uL (4.50-5.90); RED CELL DISTRIBUTION WIDTH 14.2 % (11.5-14.5)
[2017-07-27 09:56] LABS: ANION GAP 3 mmol/L (8-16); CALCIUM, TOTAL 9.4 mg/dL (8.8-10.5); CARBON DIOXIDE 35 mmol/L (22-29); CHLORIDE 103 mmol/L (98-107); CREATININE 0.81 mg/dL (0.60-1.30); GLOMERULAR FILTR. RATE CALC > 60 mL/min (>60); GLUCOSE,RANDOM 86 mg/dL (70-110); POTASSIUM 4.6 mmol/L (3.5-5.1); SODIUM SERUM 141 mmol/L (136-145); UREA NITROGEN, BLOOD 12 mg/dL (7-18)
[2017-07-27 10:02] LABS: ALANINE AMINOTRANSFERASE 38 U/L (12-78); ALBUMIN 3.6 g/dL (3.4-5.0); ALKALINE PHOSPHATASE 60 U/L (46-116); ASPARTATE AMINOTRANSFERASE 25 U/L (15-37); BILIRUBIN,TOTAL 0.5 mg/dL (0.1-1.0)
[2017-07-27 10:04] LABS: LACTIC ACID 1.6 mmol/L (0.4-2.0)
[2017-07-27 10:18] LABS: B-TYPE NATRIURETIC PEPTIDE 68 pg/mL (0-100)
[2017-07-27] MEDS ORDERED: MUPIROCIN CALCIUM 2% 22 GM OINTMENT TP ONE (12:00)
== END 2017-07-27 12:20 | disposition home or self-care (01) ==
LOC: EMS 08:24
DX: L08.9 Local infection of the skin and subcutaneous tissue, unspecified (principal); S01.00XD Unspecified open wound of scalp, subsequent encounter; E78.00 Pure hypercholesterolemia, unspecified; I10 Essential (primary) hypertension; F17.210 Nicotine dependence, cigarettes, uncomplicated; F12.90 Cannabis use, unspecified, uncomplicated; Z59.0 Homelessness; Z88.8 Allergy status to other drugs, medicaments and biological substances; X58.XXXD Exposure to other specified factors, subsequent encounter
CPT/HCPCS: 36415; 80053; 83605; 83880; 85025; 87070; 87077; 87186; 87205; 96365; 99284; J0712

== ENCOUNTER 2019-02-22 11:32 | Inpatient (IN) | payer MEDICAID, OTHER ==
[~2019-02-22] VITALS: Ht 180.3 cm; Wt 96.6 kg
[2019-02-22] MEDS ORDERED: BENZ2TAB10 PO (11:44)
[2019-02-22] MEDS ORDERED: LORA-1001 PO ×2 (11:44)
[2019-02-22] MEDS ORDERED: QUET300T2 PO (11:44)
[2019-02-22] MEDS ORDERED: DIVA-78 PO (11:44)
[2019-02-22 13:32] LABS: BASOPHILS % (AUTO) 0.4 % (0.0-2.0); EOSINOPHILS % (AUTO) 0.1 % (1.0-6.0); HEMATOCRIT 40.6 % (41-53); HEMOGLOBIN 13.3 g/dL (13.5-17.5); LYMPHOCYTES # (AUTO) 1.5 K/uL (1.0-4.8); LYMPHOCYTES % (AUTO) 35.4 % (22.0-44.0); MEAN CORPUSCULAR HEMOGLOBIN 32.3 pg (26.0-34.0); MEAN CORPUSCULAR HGB CONC 32.8 G/dL (31.0-37.0); MEAN CORPUSCULAR VOLUME 98 fL (80-100); MONOCYTES # (AUTO) 0.3 K/uL (0.1-1.0); MONOCYTES % (AUTO) 7.8 % (2.0-9.0); NEUTROPHILS # (AUTO) 2.3 K/uL (1.8-7.7); NEUTROPHILS % (AUTO) 56.3 % (40.0-70.0); PLATELET COUNT (AUTO) 211 K/uL (150-450); RED BLOOD CELL COUNT(AUTO) 4.13 MIL/uL (4.50-5.90); RED CELL DISTRIBUTION WIDTH 12.7 % (11.5-14.5)
[2019-02-22 13:40] LABS: AMPHET/METH SCREEN,URINE NEGATIVE (NEGATIVE); BARBITURATE SCREEN, URINE NEGATIVE (NEGATIVE); BENZODIAZEPINES SCREEN,URINE NEGATIVE (NEGATIVE); CANNABINOID SCREEN,URINE NEGATIVE (NEGATIVE); COCAINE SCREEN,URINE NEGATIVE (NEGATIVE); METHADONE SCREEN, URINE NEGATIVE (NEGATIVE); OPIATE SCREEN,URINE NEGATIVE (NEGATIVE); PHENCYCLIDINE SCREEN,URINE NEGATIVE (NEGATIVE)
[2019-02-22 13:40] LABS: ANION GAP 9 mmol/L (8-16); CALCIUM, TOTAL 8.9 mg/dL (8.8-10.5); CARBON DIOXIDE 29 mmol/L (22-29); CHLORIDE 106 mmol/L (98-107); CREATININE 0.97 mg/dL (0.60-1.30); GLOMERULAR FILTR. RATE CALC > 60 mL/min (>60); GLUCOSE,RANDOM 85 mg/dL (70-110); POTASSIUM 3.5 mmol/L (3.5-5.1); SODIUM SERUM 144 mmol/L (136-145); UREA NITROGEN, BLOOD 11 mg/dL (7-18)
[2019-02-22 13:45] LABS: ALANINE AMINOTRANSFERASE 34 U/L (12-78); ALBUMIN 4.1 g/dL (3.4-5.0); ALKALINE PHOSPHATASE 81 U/L (46-116); ASPARTATE AMINOTRANSFERASE 19 U/L (15-37); BILIRUBIN,TOTAL 0.4 mg/dL (0.1-1.0)
[2019-02-22] MEDS ORDERED: OLANZapine 5 MG RAPDIS TABLET PO PRN (14:00)
[2019-02-22] MEDS ORDERED: LORazepam 2 MG TABLET PO PRN (14:00)
[2019-02-22] MEDS ORDERED: ZOLPIDEM TARTRATE 10 MG TABLET PO PRN (14:00)
[2019-02-22 17:37] VITALS: BP 171/92
[2019-02-23 01:20] VITALS: BP 165/92
[2019-02-23 06:35] LABS: CHOL/HDL RATIO 1.9 (4.2-7.3); FREE T4 (FREE THYROXINE) 0.86 ng/dL (0.76-1.46); THYROID STIMULATING HORMONE 0.94 uIU/mL (0.36-3.74)
[2019-02-23 08:10] VITALS: BP 101/65
[2019-02-23] MEDS ORDERED: CloNIDine HCL 0.1 MG TABLET PO PRN (08:15)
[2019-02-23] MEDS ORDERED: MAGNESIUM HYDROXIDE SUSPENSION 30 ML UDCUP PO PRN (08:15)
[2019-02-23] MEDS ORDERED: DOCUSATE SODIUM 100 MG CAPSULE PO PRN (08:15)
[2019-02-23] MEDS ORDERED: OMEPRAZOLE 20 MG CAPSULE PO PRN (08:15)
[2019-02-23] MEDS ORDERED: LOPERAMIDE HCL 2 MG CAPSULE PO PRN (08:15)
[2019-02-23] MEDS ORDERED: IBUPROFEN 600 MG TABLET PO PRN (08:15)
[2019-02-23] MEDS ORDERED: MAG HYDROX/AL HYDROX/SIMETH ES 30 ML SUSPENSION UDCUP PO PRN (08:15)
[2019-02-23] MEDS ORDERED: PETROLATUM,WHITE 28 GM JELLY TP PRN (08:15)
[2019-02-23] MEDS ORDERED: ACETAMINOPHEN 325 MG TABLET PO PRN (08:15)
[2019-02-23] MEDS ORDERED: BENZOCAINE/MENTHOL LOZENGE MM PRN (08:15)
[2019-02-23] MEDS ORDERED: ONDANSETRON HCL 4 MG TABLET PO PRN (08:15)
[2019-02-23] MEDS ORDERED: BACITRACIN 28.4 GM OINTMENT TP PRN (08:15)
[2019-02-23] MEDS ORDERED: ALBUTEROL SULFATE HFA 90 MCG/PUFF 8 GM INHALER IH PRN (08:15)
[2019-02-23] MEDS: AmLODIPine BESYLATE 10 MG TABLET PO SCH (08:48)
[2019-02-23] MEDS: METOPROLOL TARTRATE 25 MG TABLET PO SCH ×2 (08:48→16:22)
[2019-02-23] MEDS: ASPIRIN 81 MG CHEWABLE TABLET PO SCH (08:48)
[2019-02-23 16:21] VITALS: BP 142/88
[2019-02-23 17:15] LABS: APPEARANCE,URINE CLOUDY (CLEAR); GLUCOSE, URINE (UA) NEGATIVE (NEGATIVE); KETONES,URINE NEGATIVE (NEGATIVE); LEUKOCYTE ESTERASE ,URINE NEGATIVE (NEGATIVE); NITRATE,URINE NEGATIVE (NEGATIVE); OCCULT BLOOD,URINE NEGATIVE (NEGATIVE); PH,URINE 6.5 (5.0-8.0); PROTEIN,URINE TRACE (NEGATIVE)
[2019-02-23 17:16] LABS: BILIRUBIN,URINE PRELIM. POSITIVE (NEGATIVE)
[2019-02-23 17:25] LABS: BACTERIA,URINE None Seen /HPF (None Seen); RBC,URINE None Seen /HPF (0-2); SQUAMOUS EPITHELIAL CELL,UR Rare /LPF (None Seen); WBC,URINE None Seen /HPF (0-5)
[2019-02-23 17:26] LABS: AMORPHOUS SEDIMENT,UR Many /LPF (None Seen)
[2019-02-23] MEDS: DIVALPROEX SODIUM 500 MG DR TABLET PO SCH (20:36)
[2019-02-23] MEDS: ATORVASTATIN CALCIUM 20 MG TABLET PO SCH (20:36)
[2019-02-23] MEDS: QUEtiapine FUMARATE 300 MG TABLET PO SCH (20:36)
[2019-02-23] MEDS: TAMSULOSIN HCL 0.4 MG CAPSULE PO SCH (20:36)
[2019-02-24 08:30] VITALS: BP 127/86
[2019-02-24] MEDS: METOPROLOL TARTRATE 25 MG TABLET PO SCH ×2 (09:06→17:00)
[2019-02-24] MEDS: AmLODIPine BESYLATE 10 MG TABLET PO SCH (09:07)
[2019-02-24] MEDS: ASPIRIN 81 MG CHEWABLE TABLET PO SCH (09:07)
[2019-02-24 18:01] VITALS: BP 121/65
[2019-02-24] MEDS: QUEtiapine FUMARATE 300 MG TABLET PO SCH (20:06)
[2019-02-24] MEDS: DIVALPROEX SODIUM 500 MG DR TABLET PO SCH (20:06)
[2019-02-24] MEDS: ATORVASTATIN CALCIUM 20 MG TABLET PO SCH (20:06)
[2019-02-24] MEDS: TAMSULOSIN HCL 0.4 MG CAPSULE PO SCH (20:06)
[2019-02-25 08:30] VITALS: BP 128/98
[2019-02-25] MEDS: METOPROLOL TARTRATE 25 MG TABLET PO SCH ×2 (10:11→16:28)
[2019-02-25] MEDS: AmLODIPine BESYLATE 10 MG TABLET PO SCH (10:11)
[2019-02-25] MEDS: ASPIRIN 81 MG CHEWABLE TABLET PO SCH (10:12)
[2019-02-25 16:13] VITALS: BP 142/64
[2019-02-25] MEDS: TAMSULOSIN HCL 0.4 MG CAPSULE PO SCH (20:49)
[2019-02-25] MEDS: QUEtiapine FUMARATE 300 MG TABLET PO SCH (20:49)
[2019-02-25] MEDS: DIVALPROEX SODIUM 500 MG DR TABLET PO SCH (20:49)
[2019-02-25] MEDS: ATORVASTATIN CALCIUM 20 MG TABLET PO SCH (20:49)
[2019-02-26 09:15] VITALS: BP 149/104
[2019-02-26] MEDS: METOPROLOL TARTRATE 25 MG TABLET PO SCH ×2 (09:31→16:46)
[2019-02-26] MEDS: AmLODIPine BESYLATE 10 MG TABLET PO SCH (09:31)
[2019-02-26] MEDS: ASPIRIN 81 MG CHEWABLE TABLET PO SCH (09:31)
[2019-02-26] MEDS: NICOTINE 21 MG/24 HOUR PATCH TD SCH (14:41)
[2019-02-26 16:30] VITALS: BP 146/83
[2019-02-27 08:43] VITALS: BP 159/82
[2019-02-27] MEDS: METOPROLOL TARTRATE 25 MG TABLET PO SCH ×2 (10:04→17:21)
[2019-02-27] MEDS: AmLODIPine BESYLATE 10 MG TABLET PO SCH (10:05)
[2019-02-27] MEDS: ASPIRIN 81 MG CHEWABLE TABLET PO SCH (10:05)
[2019-02-27] MEDS: NICOTINE 21 MG/24 HOUR PATCH TD SCH (10:09)
[2019-02-27] MEDS ORDERED: DIVA250T4 PO (16:32)
[2019-02-27] MEDS ORDERED: TAMS-1 PO (16:46)
[2019-02-27] MEDS ORDERED: ATOR20TA86 PO (16:47)
[2019-02-27] MEDS ORDERED: METO25 PO (16:48)
[2019-02-27] MEDS ORDERED: ASPI81TA39 PO (16:49)
[2019-02-27] MEDS ORDERED: AMLO10TA4 PO (16:50)
== END 2019-02-27 17:30 | disposition home or self-care (01) | DRG 750 ==
LOC: EMS 11:38 → 3EI 15:15
PROVIDERS: ADMIT Psychiatry & Neurology Psychiatry; ATTEND Psychiatry & Neurology Psychiatry
DX: F25.0 Schizoaffective disorder, bipolar type (principal); R45.851 Suicidal ideations; Z59.0 Homelessness; E78.00 Pure hypercholesterolemia, unspecified; F41.9 Anxiety disorder, unspecified; Z91.19 Patient's noncompliance with other medical treatment and regimen; G47.00 Insomnia, unspecified; I10 Essential (primary) hypertension; I25.10 Atherosclerotic heart disease of native coronary artery without angina pectoris; J44.9 Chronic obstructive pulmonary disease, unspecified; F17.210 Nicotine dependence, cigarettes, uncomplicated; Z91.14 Patient's other noncompliance with medication regimen; Z81.8 Family history of other mental and behavioral disorders; E66.9 Obesity, unspecified; Z68.29 Body mass index [BMI] 29.0-29.9, adult
CPT/HCPCS: 84439; 84443; G0480

== ENCOUNTER 2019-03-01 00:28 | Emergency (ER) | payer MEDICAID ==
[~2019-03-01] VITALS: Ht 177.8 cm; Wt 97.7 kg
[~2019-03-01 00:28] MED LIST changes: +AMLO10TA4 PO; +ASPI81TA39 PO; +ATOR20TA86 PO; +BENZ2TAB10 PO; +DIVA-78 PO; +DIVA250T4 PO; +LORA-1001 PO; +QUET300T2 PO; +TAMS-1 PO
[2019-03-01 00:35] VITALS: BP 145/73
[2019-03-01 01:09] LABS: BASOPHILS % (AUTO) 0.5 % (0.0-2.0); EOSINOPHILS % (AUTO) 0.2 % (1.0-6.0); HEMATOCRIT 37.3 % (41-53); HEMOGLOBIN 12.5 g/dL (13.5-17.5); LYMPHOCYTES # (AUTO) 1.3 K/uL (1.0-4.8); LYMPHOCYTES % (AUTO) 34.7 % (22.0-44.0); MEAN CORPUSCULAR HEMOGLOBIN 32.2 pg (26.0-34.0); MEAN CORPUSCULAR HGB CONC 33.4 G/dL (31.0-37.0); MEAN CORPUSCULAR VOLUME 96 fL (80-100); MONOCYTES # (AUTO) 0.4 K/uL (0.1-1.0); MONOCYTES % (AUTO) 10.1 % (2.0-9.0); NEUTROPHILS # (AUTO) 2.1 K/uL (1.8-7.7); NEUTROPHILS % (AUTO) 54.5 % (40.0-70.0); PLATELET COUNT (AUTO) 178 K/uL (150-450); RED BLOOD CELL COUNT(AUTO) 3.87 MIL/uL (4.50-5.90); RED CELL DISTRIBUTION WIDTH 12.7 % (11.5-14.5)
[2019-03-01 01:18] LABS: ANION GAP 5 mmol/L (8-16); CARBON DIOXIDE 31 mmol/L (22-29); CHLORIDE 104 mmol/L (98-107); CREATININE 0.76 mg/dL (0.60-1.30); GLOMERULAR FILTR. RATE CALC > 60 mL/min (>60); GLUCOSE,RANDOM 94 mg/dL (70-110); POTASSIUM 3.8 mmol/L (3.5-5.1); SODIUM SERUM 140 mmol/L (136-145); UREA NITROGEN, BLOOD 10 mg/dL (7-18)
[2019-03-01 01:24] LABS: ALANINE AMINOTRANSFERASE 37 U/L (12-78); ALBUMIN 3.7 g/dL (3.4-5.0); ALKALINE PHOSPHATASE 66 U/L (46-116); ASPARTATE AMINOTRANSFERASE 21 U/L (15-37); BILIRUBIN,TOTAL 0.3 mg/dL (0.1-1.0); TOTAL PROTEIN, SERUM 7.3 g/dL (6.4-8.2)
[2019-03-01 03:24] LABS: AMPHET/METH SCREEN,URINE NEGATIVE (NEGATIVE); BARBITURATE SCREEN, URINE NEGATIVE (NEGATIVE); BENZODIAZEPINES SCREEN,URINE NEGATIVE (NEGATIVE); CANNABINOID SCREEN,URINE NEGATIVE (NEGATIVE); COCAINE SCREEN,URINE NEGATIVE (NEGATIVE); METHADONE SCREEN, URINE NEGATIVE (NEGATIVE); OPIATE SCREEN,URINE NEGATIVE (NEGATIVE)
[2019-03-01 03:28] LABS: PHENCYCLIDINE SCREEN,URINE NEGATIVE (NEGATIVE)
== END 2019-03-01 02:22 | disposition home or self-care (01) ==
LOC: EMS 00:29
DX: R45.851 Suicidal ideations (principal); F17.210 Nicotine dependence, cigarettes, uncomplicated; F41.9 Anxiety disorder, unspecified; F32.9 Major depressive disorder, single episode, unspecified; E78.00 Pure hypercholesterolemia, unspecified; I10 Essential (primary) hypertension; F20.9 Schizophrenia, unspecified; F12.90 Cannabis use, unspecified, uncomplicated; Z59.0 Homelessness; Z79.82 Long term (current) use of aspirin; Z88.8 Allergy status to other drugs, medicaments and biological substances
CPT/HCPCS: 36415; 80053; 80307; 85025; 99284; 99406; G0480

== ENCOUNTER 2019-09-25 10:24 | Inpatient (IN) | payer MEDICAID ==
[~2019-09-25] VITALS: Ht 177.8 cm; Wt 93.9 kg
[~2019-09-25 10:24] MED LIST changes: -BENZ2TAB10 PO; -DIPH25 PO; +DIVA-112 PO; -DIVA-78 PO; -DIVA250T4 PO; -DSS100 PO; -FLUO-191 PO; -LISI-662 PO; -LORA-1001 PO; -MVITFE PO; -OMEP20 PO; -PALI234D IM; -PALI6 PO
[2019-09-25] MEDS ORDERED: ZIPRASIDONE MESYLATE 20 MG/VIAL IM ONE (14:45)
[2019-09-25] MEDS ORDERED: DiphenhydrAMINE HCL 50 MG/ML VIAL IM ONE (14:45)
[2019-09-25] MEDS ORDERED: LORazepam 2 MG/ML VIAL IM ONE (14:45)
[2019-09-25] MEDS ORDERED: LABETALOL HCL 5 MG/ML 20 ML VIAL IVP ONE (19:45)
[2019-09-25] MEDS ORDERED: QUEtiapine FUMARATE 100 MG TABLET PO ONE (20:00)
[2019-09-25] MEDS ORDERED: DIVALPROEX SODIUM 500 MG ER TABLET PO ONE (20:00)
[2019-09-25] MEDS ORDERED: AmLODIPine BESYLATE 5 MG TABLET PO ONE (20:00)
[2019-09-26] MEDS: ZOLPIDEM TARTRATE 10 MG TABLET PO PRN ×2 (01:09→21:06)
[2019-09-26] MEDS: LORazepam 2 MG TABLET PO PRN ×2 (01:09→16:27)
[2019-09-26] MEDS: OLANZapine 5 MG RAPDIS TABLET PO PRN ×2 (01:09→16:54)
[2019-09-26 05:36] VITALS: BP 130/73
[2019-09-26] MEDS ORDERED: PNEUMOCOCCAL VACCINE POLYVALENT 0.5 ML VIAL [PPSV23] IM ONE (06:00)
[2019-09-26 08:15] VITALS: BP 158/105
[2019-09-26] MEDS: ASPIRIN 81 MG CHEWABLE TABLET PO SCH (09:00)
[2019-09-26] MEDS: METOPROLOL TARTRATE 25 MG TABLET PO SCH ×2 (09:00→16:32)
[2019-09-26] MEDS: AmLODIPine BESYLATE 10 MG TABLET PO SCH (09:00)
[2019-09-26] MEDS ORDERED: LORazepam 2 MG/ML VIAL IM ONE (10:30)
[2019-09-26] MEDS ORDERED: DiphenhydrAMINE HCL 50 MG/ML VIAL IM ONE (10:30)
[2019-09-26] MEDS ORDERED: ZIPRASIDONE MESYLATE 20 MG/VIAL IM ONE (10:30)
[2019-09-26 16:28] VITALS: BP 153/80
[2019-09-26] MEDS: TAMSULOSIN HCL 0.4 MG CAPSULE PO SCH (21:05)
[2019-09-26] MEDS: QUEtiapine FUMARATE 300 MG TABLET PO SCH (21:05)
[2019-09-26] MEDS: DIVALPROEX SODIUM 500 MG DR TABLET PO SCH (21:05)
[2019-09-26] MEDS: ATORVASTATIN CALCIUM 20 MG TABLET PO SCH (21:09)
[2019-09-27 05:29] VITALS: BP 141/85
[2019-09-27 08:14] VITALS: BP 147/89
[2019-09-27] MEDS: QUEtiapine FUMARATE 300 MG TABLET PO SCH ×2 (08:27→20:34)
[2019-09-27] MEDS: DIVALPROEX SODIUM 500 MG DR TABLET PO SCH ×2 (08:27→20:34)
[2019-09-27] MEDS: METOPROLOL TARTRATE 25 MG TABLET PO SCH ×2 (08:28→16:07)
[2019-09-27] MEDS: LORazepam 2 MG TABLET PO PRN ×2 (08:28→16:07)
[2019-09-27] MEDS: AmLODIPine BESYLATE 10 MG TABLET PO SCH (08:28)
[2019-09-27] MEDS: ASPIRIN 81 MG CHEWABLE TABLET PO SCH (08:28)
[2019-09-27] MEDS: ATORVASTATIN CALCIUM 20 MG TABLET PO SCH (20:34)
[2019-09-27] MEDS: TAMSULOSIN HCL 0.4 MG CAPSULE PO SCH (20:34)
[2019-09-27] MEDS: ZOLPIDEM TARTRATE 10 MG TABLET PO PRN (20:34)
[2019-09-27 21:26] VITALS: BP 157/87
[2019-09-28 06:08] VITALS: BP 136/78
[2019-09-28] MEDS: AmLODIPine BESYLATE 10 MG TABLET PO SCH (08:14)
[2019-09-28] MEDS: ASPIRIN 81 MG CHEWABLE TABLET PO SCH (08:15)
[2019-09-28] MEDS: METOPROLOL TARTRATE 25 MG TABLET PO SCH ×2 (08:15→17:00)
[2019-09-28] MEDS: QUEtiapine FUMARATE 300 MG TABLET PO SCH ×2 (08:15→20:14)
[2019-09-28] MEDS: DIVALPROEX SODIUM 500 MG DR TABLET PO SCH ×2 (08:15→20:14)
[2019-09-28 08:20] VITALS: BP 148/78
[2019-09-28 11:30] VITALS: BP_SYST 135; BP_SYST 137; BP_DIAS 65
[2019-09-28 19:51] VITALS: BP 135/68
[2019-09-28] MEDS: TAMSULOSIN HCL 0.4 MG CAPSULE PO SCH (20:14)
[2019-09-28] MEDS: ATORVASTATIN CALCIUM 20 MG TABLET PO SCH (20:14)
[2019-09-29] MEDS: LORazepam 2 MG TABLET PO PRN (01:49)
[2019-09-29] MEDS: ZOLPIDEM TARTRATE 10 MG TABLET PO PRN (01:49)
[2019-09-29 05:51] VITALS: BP 155/71
[2019-09-29] MEDS: AmLODIPine BESYLATE 10 MG TABLET PO SCH (08:02)
[2019-09-29] MEDS: QUEtiapine FUMARATE 300 MG TABLET PO SCH ×2 (08:02→20:10)
[2019-09-29] MEDS: DIVALPROEX SODIUM 500 MG DR TABLET PO SCH ×2 (08:02→20:10)
[2019-09-29] MEDS: ASPIRIN 81 MG CHEWABLE TABLET PO SCH (08:02)
[2019-09-29] MEDS: METOPROLOL TARTRATE 25 MG TABLET PO SCH ×2 (08:02→16:12)
[2019-09-29 08:46] VITALS: BP 144/82
[2019-09-29 16:09] VITALS: BP 138/85
[2019-09-29] MEDS: TAMSULOSIN HCL 0.4 MG CAPSULE PO SCH (20:10)
[2019-09-29] MEDS: ATORVASTATIN CALCIUM 20 MG TABLET PO SCH (20:10)
[2019-09-30] MEDS: QUEtiapine FUMARATE 300 MG TABLET PO SCH ×2 (08:12→21:33)
[2019-09-30] MEDS: DIVALPROEX SODIUM 500 MG DR TABLET PO SCH ×2 (08:12→21:33)
[2019-09-30] MEDS: ASPIRIN 81 MG CHEWABLE TABLET PO SCH (08:13)
[2019-09-30] MEDS: AmLODIPine BESYLATE 10 MG TABLET PO SCH (08:13)
[2019-09-30] MEDS: METOPROLOL TARTRATE 25 MG TABLET PO SCH ×2 (08:13→16:14)
[2019-09-30 08:24] VITALS: BP 151/78
[2019-09-30 16:10] VITALS: BP 110/61
[2019-09-30] MEDS: TAMSULOSIN HCL 0.4 MG CAPSULE PO SCH (21:33)
[2019-09-30] MEDS: ATORVASTATIN CALCIUM 20 MG TABLET PO SCH (21:33)
[2019-09-30] MEDS: ZOLPIDEM TARTRATE 10 MG TABLET PO PRN (22:40)
[2019-10-01 05:37] VITALS: BP 115/65
[2019-10-01] MEDS: DIVALPROEX SODIUM 500 MG DR TABLET PO SCH ×2 (07:58→20:27)
[2019-10-01] MEDS: METOPROLOL TARTRATE 25 MG TABLET PO SCH ×2 (07:58→16:10)
[2019-10-01] MEDS: ASPIRIN 81 MG CHEWABLE TABLET PO SCH (07:58)
[2019-10-01] MEDS: AmLODIPine BESYLATE 10 MG TABLET PO SCH (07:58)
[2019-10-01] MEDS: QUEtiapine FUMARATE 300 MG TABLET PO SCH ×2 (07:58→20:27)
[2019-10-01 08:22] VITALS: BP 131/71
[2019-10-01 16:22] VITALS: BP 134/78
[2019-10-01] MEDS: ATORVASTATIN CALCIUM 20 MG TABLET PO SCH (20:27)
[2019-10-01] MEDS: TAMSULOSIN HCL 0.4 MG CAPSULE PO SCH (20:27)
[2019-10-02 05:32] VITALS: BP 137/80
[2019-10-02 08:11] VITALS: BP 126/70
[2019-10-02] MEDS: DIVALPROEX SODIUM 500 MG DR TABLET PO SCH ×2 (08:31→20:50)
[2019-10-02] MEDS: ASPIRIN 81 MG CHEWABLE TABLET PO SCH (08:32)
[2019-10-02] MEDS: AmLODIPine BESYLATE 10 MG TABLET PO SCH (08:32)
[2019-10-02] MEDS: QUEtiapine FUMARATE 300 MG TABLET PO SCH ×2 (08:32→20:50)
[2019-10-02] MEDS: METOPROLOL TARTRATE 25 MG TABLET PO SCH ×2 (08:32→16:41)
[2019-10-02 16:17] VITALS: BP 138/83
[2019-10-02] MEDS: TAMSULOSIN HCL 0.4 MG CAPSULE PO SCH (20:50)
[2019-10-02] MEDS: ATORVASTATIN CALCIUM 20 MG TABLET PO SCH (21:10)
[2019-10-03 02:20] VITALS: BP 139/81
[2019-10-03] MEDS: METOPROLOL TARTRATE 25 MG TABLET PO SCH ×2 (08:28→16:12)
[2019-10-03] MEDS: AmLODIPine BESYLATE 10 MG TABLET PO SCH (08:28)
[2019-10-03] MEDS: QUEtiapine FUMARATE 300 MG TABLET PO SCH ×2 (08:28→20:13)
[2019-10-03] MEDS: ASPIRIN 81 MG CHEWABLE TABLET PO SCH (08:28)
[2019-10-03] MEDS: DIVALPROEX SODIUM 500 MG DR TABLET PO SCH ×2 (08:28→20:13)
[2019-10-03 17:20] VITALS: BP 129/78
[2019-10-03] MEDS: TAMSULOSIN HCL 0.4 MG CAPSULE PO SCH (20:13)
[2019-10-03] MEDS: ATORVASTATIN CALCIUM 20 MG TABLET PO SCH (20:13)
[2019-10-04 04:28] VITALS: BP 125/72
[2019-10-04] MEDS: QUEtiapine FUMARATE 300 MG TABLET PO SCH ×2 (08:13→20:33)
[2019-10-04] MEDS: ASPIRIN 81 MG CHEWABLE TABLET PO SCH (08:13)
[2019-10-04] MEDS: METOPROLOL TARTRATE 25 MG TABLET PO SCH ×2 (08:13→16:15)
[2019-10-04] MEDS: DIVALPROEX SODIUM 500 MG DR TABLET PO SCH ×2 (08:13→20:33)
[2019-10-04] MEDS: AmLODIPine BESYLATE 10 MG TABLET PO SCH (08:13)
[2019-10-04 12:36] VITALS: BP 136/79
[2019-10-04 17:12] VITALS: BP 144/79
[2019-10-04] MEDS: ATORVASTATIN CALCIUM 20 MG TABLET PO SCH (20:33)
[2019-10-04] MEDS: TAMSULOSIN HCL 0.4 MG CAPSULE PO SCH (20:33)
[2019-10-05 04:49] VITALS: BP 150/92
[2019-10-05 08:18] VITALS: BP 136/98
[2019-10-05] MEDS: ASPIRIN 81 MG CHEWABLE TABLET PO SCH (09:06)
[2019-10-05] MEDS: AmLODIPine BESYLATE 10 MG TABLET PO SCH (09:06)
[2019-10-05] MEDS: DIVALPROEX SODIUM 500 MG DR TABLET PO SCH ×2 (09:06→20:34)
[2019-10-05] MEDS: METOPROLOL TARTRATE 25 MG TABLET PO SCH ×2 (09:06→16:24)
[2019-10-05] MEDS: QUEtiapine FUMARATE 300 MG TABLET PO SCH ×2 (09:06→20:34)
[2019-10-05] MEDS: OLANZapine 5 MG RAPDIS TABLET PO PRN (09:07)
[2019-10-05 16:23] VITALS: BP 122/63
[2019-10-05] MEDS: LORazepam 2 MG TABLET PO PRN (16:24)
[2019-10-05] MEDS: ZOLPIDEM TARTRATE 10 MG TABLET PO PRN (20:34)
[2019-10-05] MEDS: ATORVASTATIN CALCIUM 20 MG TABLET PO SCH (20:34)
[2019-10-05] MEDS: TAMSULOSIN HCL 0.4 MG CAPSULE PO SCH (20:34)
[2019-10-06 05:05] VITALS: BP 125/65
[2019-10-06 08:26] VITALS: BP 166/72
[2019-10-06] MEDS: AmLODIPine BESYLATE 10 MG TABLET PO SCH (08:52)
[2019-10-06] MEDS: METOPROLOL TARTRATE 25 MG TABLET PO SCH (08:52)
[2019-10-06] MEDS: QUEtiapine FUMARATE 300 MG TABLET PO SCH (08:52)
[2019-10-06] MEDS: ASPIRIN 81 MG CHEWABLE TABLET PO SCH (08:52)
[2019-10-06] MEDS: DIVALPROEX SODIUM 500 MG DR TABLET PO SCH (08:52)
[2019-10-06] MEDS ORDERED: DIVA-112 PO (09:26)
[2019-10-06] MEDS ORDERED: QUET300T2 PO (09:27)
== END 2019-10-06 12:55 | disposition home or self-care (01) | DRG 885 ==
LOC: EMS 10:31 → B3A 18:20
DX: F25.0 Schizoaffective disorder, bipolar type (principal); F10.10 Alcohol abuse, uncomplicated; E78.5 Hyperlipidemia, unspecified; E78.00 Pure hypercholesterolemia, unspecified; I10 Essential (primary) hypertension; I25.10 Atherosclerotic heart disease of native coronary artery without angina pectoris; J44.9 Chronic obstructive pulmonary disease, unspecified; N40.0 Benign prostatic hyperplasia without lower urinary tract symptoms; F17.210 Nicotine dependence, cigarettes, uncomplicated; F41.9 Anxiety disorder, unspecified; F12.90 Cannabis use, unspecified, uncomplicated; Z59.0 Homelessness
CPT/HCPCS: 90732; J1200; J2060; J3486; J3490

== ENCOUNTER 2019-09-28 15:58 | Emergency (ER) | payer MEDICAID ==
[~2019-09-28] VITALS: Ht 175.3 cm; Wt 86.4 kg
[2019-09-28 17:30] VITALS: BP 164/82
[2019-09-28] MEDS ORDERED: LORazepam 2 MG/ML VIAL IM ONE (17:30)
[2019-09-28] MEDS ORDERED: HALOPERIDOL LACTATE 5 MG/ML VIAL IM ONE (17:30)
[2019-09-28] MEDS ORDERED: FluPHENAZine HCL 2.5 MG/ML INJ IM ONE (17:30)
[2019-09-28] MEDS ORDERED: ZIPRASIDONE MESYLATE 20 MG/VIAL IM ONE (17:45)
== END 2019-09-28 19:11 | disposition other institution (70) ==
LOC: EMS 15:58
DX: S09.90XA Unspecified injury of head, initial encounter (principal); F25.9 Schizoaffective disorder, unspecified; I10 Essential (primary) hypertension; E78.00 Pure hypercholesterolemia, unspecified; F32.9 Major depressive disorder, single episode, unspecified; F41.9 Anxiety disorder, unspecified; F12.90 Cannabis use, unspecified, uncomplicated; F17.210 Nicotine dependence, cigarettes, uncomplicated; Z88.8 Allergy status to other drugs, medicaments and biological substances; Z79.899 Other long term (current) drug therapy; W18.39XA Other fall on same level, initial encounter; Y93.89 Activity, other specified; Y92.89 Other specified places as the place of occurrence of the external cause; Y99.8 Other external cause status
CPT/HCPCS: 70450; 96372; 99284; J2060; J3486; J3490

== ENCOUNTER 2021-01-04 08:11 | Emergency (ER) | payer MEDICAID ==
[~2021-01-04] VITALS: Ht 177.8 cm; Wt 102.3 kg
[2021-01-04 09:28] LABS: BASOPHILS % (AUTO) 0.6 % (0.0-2.0); EOSINOPHILS % (AUTO) 0 % (1.0-6.0); HEMATOCRIT 37.5 % (41-53); HEMOGLOBIN 12.4 g/dL (13.5-17.5); LYMPHOCYTES # (AUTO) 0.8 K/uL (1.0-4.8); LYMPHOCYTES % (AUTO) 21.6 % (22.0-44.0); MEAN CORPUSCULAR VOLUME 97 fL (80-100); MONOCYTES # (AUTO) 0.3 K/uL (0.1-1.0); MONOCYTES % (AUTO) 9.5 % (2.0-9.0); NEUTROPHILS # (AUTO) 2.4 K/uL (1.8-7.7); NEUTROPHILS % (AUTO) 68.3 % (40.0-70.0); PLATELET COUNT (AUTO) 179 K/uL (150-450); RED BLOOD CELL COUNT(AUTO) 3.87 MIL/uL (4.50-5.90); RED CELL DISTRIBUTION WIDTH 13.6 % (11.5-14.5)
[2021-01-04 09:37] LABS: ANION GAP 9 mmol/L (8-16); CARBON DIOXIDE 27 mmol/L (22-29); CHLORIDE 104 mmol/L (98-107); CREATININE 0.81 mg/dL (0.60-1.30); GLOMERULAR FILTR. RATE CALC > 60 mL/min (>60); GLUCOSE,RANDOM 86 mg/dL (70-110); POTASSIUM 3.9 mmol/L (3.5-5.1); SODIUM SERUM 140 mmol/L (136-145); UREA NITROGEN, BLOOD 13 mg/dL (7-18)
[2021-01-04 09:41] LABS: AMPHET/METH SCREEN,URINE NEGATIVE (NEGATIVE); BARBITURATE SCREEN, URINE POSITIVE (NEGATIVE); BENZODIAZEPINES SCREEN,URINE NEGATIVE (NEGATIVE); CANNABINOID SCREEN,URINE NEGATIVE (NEGATIVE); COCAINE SCREEN,URINE NEGATIVE (NEGATIVE); METHADONE SCREEN, URINE NEGATIVE (NEGATIVE); OPIATE SCREEN,URINE NEGATIVE (NEGATIVE)
[2021-01-04 09:42] LABS: PHENCYCLIDINE SCREEN,URINE NEGATIVE (NEGATIVE)
[2021-01-04 09:43] LABS: ALANINE AMINOTRANSFERASE 38 U/L (12-78); ALBUMIN 3.9 g/dL (3.4-5.0); ALKALINE PHOSPHATASE 94 U/L (46-116); ASPARTATE AMINOTRANSFERASE 19 U/L (15-37); BILIRUBIN,TOTAL 0.7 mg/dL (0.1-1.0); TOTAL PROTEIN, SERUM 7.9 g/dL (6.4-8.2)
[2021-01-04 09:44] LABS: VALPROIC ACID < 3 mcg/mL (50-100)
[2021-01-04] MEDS ORDERED: LORazepam 1 MG TABLET PO ONE (10:00)
[2021-01-04 10:16] VITALS: BP 119/80
[2021-01-04 10:33] LABS: COVID AG,FIA SOURCE NASOPHARYNGEAL
== END 2021-01-04 11:07 | disposition home or self-care (01) ==
LOC: EMS 08:16
DX: F20.9 Schizophrenia, unspecified (principal); F32.9 Major depressive disorder, single episode, unspecified; F41.9 Anxiety disorder, unspecified; I10 Essential (primary) hypertension; E78.00 Pure hypercholesterolemia, unspecified; F12.90 Cannabis use, unspecified, uncomplicated; F17.210 Nicotine dependence, cigarettes, uncomplicated; Z88.8 Allergy status to other drugs, medicaments and biological substances; Z79.899 Other long term (current) drug therapy; Z20.822 Contact with and (suspected) exposure to COVID-19
CPT/HCPCS: 36415; 80053; 80164; 80307; 85025; 87426; 99284; G0480